=== PATIENT | female | born 1950 | race Two or more races ===

== ENCOUNTER 2022-01-18 15:36 | Inpatient (IN) | payer MEDICARE, MEDICAID ==
[~2022-01-18] VITALS: Ht 157.5 cm; Wt 58.7 kg
[2022-01-18 17:51] LABS: Basophils # (auto) 0 10 ^3/uL (0-0.2); Basophils % (auto) 0.2 % (0.0-2.0); Eosinophils # (auto) 0 10 ^3/uL (0-0.8); Eosinophils % (auto) 0.1 % (0.0-7.0); Hematocrit 39.7 % (36.0-46.0); Hemoglobin 13.6 g/dL (12.2-16.2); Lymphocytes # (auto) 0.6 10 ^3/uL (0.4-5.4); Lymphocytes % (auto) 3.8 % (10.0-50.0); Mean Corpuscular Hemoglobin 32.1 pg (28.0-32.0); Mean Corpuscular Hgb Conc. 34.3 g/dL (32.0-36.0); Mean Corpuscular Volume 93.6 fL (80.0-100.0); Monocytes # (auto) 1.3 10 ^3/uL (0-1.3); Monocytes % (auto) 8.8 % (0.0-12.0); Neutrophils # (auto) 13.1 10 ^3/uL (1.6-8.6); Neutrophils % (auto) 87.1 % (37.0-80.0); Red Blood Cells 4.24 10^6/uL (4.0-5.20); Red Cell Distribution Width 14.5 % (11.8-14.3)
[2022-01-18 18:08] LABS: Albumin 3.8 g/dL (3.4-5.0); Calcium 9.3 mg/dL (8.5-10.1); Potassium 4.5 mmol/L (3.5-5.1)
[2022-01-18 18:13] LABS: BUN/Creatinine Ratio 13.7; Bilirubin, Total 1.8 mg/dL (0.2-1.0); Total Protein 6.8 g/dL (6.4-8.2)
[2022-01-18] MEDS ORDERED: SODIUM CHLORIDE 0.9% 1,000 ML IV ONE (19:30)
[2022-01-18] MEDS ORDERED: ONDANSETRON HCL 4 MG/2 ML VIAL IV PRN (22:00)
[2022-01-18] MEDS ORDERED: cefTRIAXone 1GM/50ML D5W 50 ML IV ONE (22:00)
[2022-01-18] MEDS ORDERED: DOCUSATE SOD 100 MG CAP PO PRN (22:00)
[2022-01-18] MEDS ORDERED: SODIUM CHLORIDE 0.9% 1,000 ML IV SCH (22:00)
[2022-01-18] MEDS ORDERED: ACETAMINOPHEN 325 MG TAB PO PRN (22:00)
[2022-01-18] MEDS ORDERED: HYDROcodone-ACET 5/325MG TAB PO PRN (22:00)
[2022-01-18] MEDS ORDERED: MORPHINE SULFATE INJ 2 MG/ml SYRG IV PRN (23:30)
[2022-01-18] MEDS ORDERED: NITROGLYCERIN 0.4 MG SL TAB SL PRN (23:30)
[2022-01-19] VITALS (46 sets, daily range): BP systolic 88–119; BP diastolic 41–65
[2022-01-19] MEDS: FAMOTIDINE (10MG/ML) 2ML VL IV SCH ×3 (00:19→21:41)
[2022-01-19 03:29] LABS: Basophils # (auto) 0 10 ^3/uL (0-0.2); Eosinophils # (auto) 0 10 ^3/uL (0-0.8); Eosinophils % (auto) 0.1 % (0.0-7.0); Hematocrit 38.1 % (36.0-46.0); Hemoglobin 13.2 g/dL (12.2-16.2); Lymphocytes # (auto) 0.3 10 ^3/uL (0.4-5.4); Lymphocytes % (auto) 4.2 % (10.0-50.0); Mean Corpuscular Hemoglobin 32.7 pg (28.0-32.0); Mean Corpuscular Hgb Conc. 34.6 g/dL (32.0-36.0); Mean Corpuscular Volume 94.5 fL (80.0-100.0); Monocytes # (auto) 0 10 ^3/uL (0-1.3); Monocytes % (auto) 0.4 % (0.0-12.0); Neutrophils # (auto) 7.1 10 ^3/uL (1.6-8.6); Neutrophils % (auto) 95.3 % (37.0-80.0); Red Blood Cells 4.04 10^6/uL (4.0-5.20); Red Cell Distribution Width 14.9 % (11.8-14.3); White Blood Cell 7.5 10^3/uL (4.4-10.8)
[2022-01-19 03:55] LABS: Albumin 3.2 g/dL (3.4-5.0); BUN/Creatinine Ratio 12.2; Calcium 8.8 mg/dL (8.5-10.1)
[2022-01-19 03:58] LABS: Bilirubin, Total 1.7 mg/dL (0.2-1.0); Total Protein 6.8 g/dL (6.4-8.2)
[2022-01-19] MEDS ORDERED: SODIUM CHLORIDE 0.9% 2,000 ML IV ONE (10:30)
[2022-01-19] MEDS ORDERED: VANCOMYCIN 1GM/250ML 250 ML IV ONE (11:00)
[2022-01-19] MEDS ORDERED: VANCOMYCIN PER PHARMACY 0 MG IV SCH (11:00)
[2022-01-19] MEDS ORDERED: NOREPINEPHRINE 8 MG/250ML KIT 250 ML IV ONE (11:02)
[2022-01-19] MEDS: NOREPINEPHRINE 8 MG/250ML KIT 250 ML IV SCH (11:05)
[2022-01-19] MEDS: SODIUM CHLORIDE 0.9% 1,000 ML IV SCH ×2 (12:05→20:34)
[2022-01-19 12:18] LABS: Cholesterol 102 mg/dL (< 200); Triglycerides 65 mg/dL (< 150)
[2022-01-19 12:21] LABS: HDL Cholesterol 63 mg/dL (40-59); LDL Cholesterol 32 mg/dL (< 100)
[2022-01-19] MEDS ORDERED: TENO300T9 PO (13:19)
[2022-01-19] MEDS ORDERED: ITRA100C2 PO (13:19)
[2022-01-19] MEDS ORDERED: LACT10PA2 PO (13:19)
[2022-01-19] MEDS ORDERED: PANT1INJ3 IV (13:19)
[2022-01-19] MEDS ORDERED: SPIR50TA5 PO (13:19)
[2022-01-19] MEDS ORDERED: FURO40TA4 PO (13:19)
[2022-01-19 14:34] LABS: Urine Amorphous Crystal FEW /hpf (None Seen); Urine Bacteria FEW /hpf (None Seen); Urine Blood 3+ /uL (Negative); Urine Specific Gravity 1.011 (1.001-1.035); Urine WBC 64 /hpf (0 - 5)
[2022-01-19 15:12] LABS: Lactic Acid w/Reflex 2.1 mmol/L (0.4-2.0)
[2022-01-19] MEDS: cefTRIAXone 1GM/50ML D5W 50 ML IV SCH (21:40)
[2022-01-19] MEDS: ITRACONAZOLE 100 MG CAP PO SCH (21:43)
[2022-01-20] VITALS (86 sets, daily range): BP systolic 86–127; BP diastolic 37–67
[2022-01-20] MEDS: SODIUM CHLORIDE 0.9% 1,000 ML IV SCH ×3 (04:00→11:53)
[2022-01-20 04:33] LABS: Albumin 2.3 g/dL (3.4-5.0); BUN/Creatinine Ratio 14.2; Phosphorus 2.1 mg/dL (2.5-4.90); Potassium 3.5 mmol/L (3.5-5.1)
[2022-01-20] MEDS ORDERED: SODIUM BICARBONATE 650 MG TAB PO ONE (09:00)
[2022-01-20] MEDS: ITRACONAZOLE 100 MG CAP PO SCH ×3 (09:23→21:49)
[2022-01-20] MEDS: LACTULOSE 20Gm/30ML SOLN PO SCH (09:30)
[2022-01-20] MEDS ORDERED: PANTOPRAZOLE 40 MG/10 ML VIAL INJ IV SCH ×2 (10:00)
[2022-01-20] MEDS ORDERED: FUROSEMIDE 20 MG TAB PO SCH (10:00)
[2022-01-20] MEDS ORDERED: SPIRONOLACTONE 25 MG TAB PO SCH (10:00)
[2022-01-20] MEDS ORDERED: TENOFOVIR DISOPROXIL FUMARATE 300 MG PO SCH (10:00)
[2022-01-20 10:01] LABS: Phosphorus 2.3 mg/dL (2.5-4.90)
[2022-01-20 10:02] LABS: Magnesium 2.1 mg/dL (1.6-2.6)
[2022-01-20] MEDS: SODIUM BICARBONATE 650 MG TAB PO SCH ×3 (11:53→21:49)
[2022-01-20] MEDS ORDERED: VANCOMYCIN 500 MG in D5W 5% 100 ML IV ONE (14:30)
[2022-01-20] MEDS: NOREPINEPHRINE 8 MG/250ML KIT 250 ML IV SCH (14:36)
[2022-01-20] MEDS: NEUTRA-PHOS TABLET PO SCH ×2 (14:37→17:59)
[2022-01-20] MEDS ORDERED: SENN1TAB14 PO (15:38)
[2022-01-20] MEDS ORDERED: POTA99CA2 PO (15:38)
[2022-01-20] MEDS: ALBUMIN 25% 100 ML IV SCH ×2 (15:42→22:44)
[2022-01-20 17:05] LABS: Hepatitis A Ab IgM Negative; Hepatitis B Core IgM Negative; Hepatitis C Antibody Negative (Negative)
[2022-01-20] MEDS: cefTRIAXone 1GM/50ML D5W 50 ML IV SCH (21:48)
[2022-01-21] VITALS (88 sets, daily range): BP systolic 85–131; BP diastolic 39–69
[2022-01-21 04:23] LABS: Basophils # (auto) 0 10 ^3/uL (0-0.2); Basophils % (auto) 0.2 % (0.0-2.0); Eosinophils # (auto) 0.2 10 ^3/uL (0-0.8); Hemoglobin 11.3 g/dL (12.2-16.2); Lymphocytes # (auto) 0.6 10 ^3/uL (0.4-5.4); Monocytes # (auto) 0.8 10 ^3/uL (0-1.3); Red Cell Distribution Width 15.4 % (11.8-14.3)
[2022-01-21 04:25] LABS: Eosinophils % (auto) 1.5 % (0.0-7.0); Mean Corpuscular Hemoglobin 32.8 pg (28.0-32.0); Mean Corpuscular Hgb Conc. 35.3 g/dL (32.0-36.0); Mean Corpuscular Volume 92.9 fL (80.0-100.0); Monocytes % (auto) 7.6 % (0.0-12.0); Neutrophils # (auto) 8.6 10 ^3/uL (1.6-8.6); Neutrophils % (auto) 84.7 % (37.0-80.0); Nucleated Red Blood Cells % 0.1 %; Red Blood Cells 3.45 10^6/uL (4.0-5.20); White Blood Cell 10.2 10^3/uL (4.4-10.8)
[2022-01-21 05:00] LABS: BUN/Creatinine Ratio 13.3; Potassium 3.2 mmol/L (3.5-5.1)
[2022-01-21 05:01] LABS: Albumin 2.7 g/dL (3.4-5.0); Calcium 8.1 mg/dL (8.5-10.1)
[2022-01-21 05:06] LABS: Bilirubin, Total 0.6 mg/dL (0.2-1.0)
[2022-01-21] MEDS: ALBUMIN 25% 100 ML IV SCH ×3 (06:23→17:40)
[2022-01-21] MEDS: SODIUM BICARBONATE 650 MG TAB PO SCH ×4 (06:24→21:44)
[2022-01-21] MEDS: PANTOPRAZOLE 40 MG/10 ML VIAL INJ IV SCH (06:33)
[2022-01-21] MEDS: NEUTRA-PHOS TABLET PO SCH ×3 (08:27→17:41)
[2022-01-21] MEDS ORDERED: POTASSIUM EFFERVESENT TAB 25 MEQ PO ONE (09:00)
[2022-01-21] MEDS: ITRACONAZOLE 100 MG CAP PO SCH ×2 (09:16→21:44)
[2022-01-21] MEDS: LACTULOSE 20Gm/30ML SOLN PO SCH (09:20)
[2022-01-21] MEDS ORDERED: TENOFOVIR DISOPROXIL FUMARATE 300 MG PO SCH (10:00)
[2022-01-21] MEDS: NOREPINEPHRINE 8 MG/250ML KIT 250 ML IV SCH (11:00)
[2022-01-21] MEDS: cefTRIAXone 1GM/50ML D5W 50 ML IV SCH (21:44)
[2022-01-22] VITALS (45 sets, daily range): BP systolic 83–123; BP diastolic 43–75
[2022-01-22] MEDS: ALBUMIN 25% 100 ML IV SCH (00:53)
[2022-01-22 05:02] LABS: BUN/Creatinine Ratio 12.4; Calcium 8.2 mg/dL (8.5-10.1); Potassium 3.5 mmol/L (3.5-5.1)
[2022-01-22] MEDS: PANTOPRAZOLE 40 MG/10 ML VIAL INJ IV SCH (06:30)
[2022-01-22] MEDS: SODIUM BICARBONATE 650 MG TAB PO SCH ×4 (06:30→22:29)
[2022-01-22] MEDS: NEUTRA-PHOS TABLET PO SCH ×3 (09:22→18:12)
[2022-01-22] MEDS: LACTULOSE 20Gm/30ML SOLN PO SCH (09:23)
[2022-01-22] MEDS: ITRACONAZOLE 100 MG CAP PO SCH ×2 (09:25→22:30)
[2022-01-22] MEDS: NOREPINEPHRINE 8 MG/250ML KIT 250 ML IV SCH (11:00)
[2022-01-22] MEDS ORDERED: SODIUM CHLORIDE 0.9% 1,500 ML IV ONE (15:45)
[2022-01-22] MEDS: cefTRIAXone 1GM/50ML D5W 50 ML IV SCH (22:29)
[2022-01-23] VITALS (13 sets, daily range): BP systolic 99–123; BP diastolic 49–74
[2022-01-23 06:51] LABS: Calcium 8.2 mg/dL (8.5-10.1); Phosphorus 2.8 mg/dL (2.5-4.90); Potassium 3.5 mmol/L (3.5-5.1)
[2022-01-23] MEDS: SODIUM BICARBONATE 650 MG TAB PO SCH (06:55)
[2022-01-23] MEDS: PANTOPRAZOLE 40 MG/10 ML VIAL INJ IV SCH (06:56)
[2022-01-23] MEDS ORDERED: PANT40T PO (08:11)
[2022-01-23] MEDS ORDERED: NEUTRA PO (08:11)
[2022-01-23] MEDS ORDERED: CIPR-173 PO (08:11)
[2022-01-23] MEDS: NEUTRA-PHOS TABLET PO SCH (09:55)
[2022-01-23] MEDS: ITRACONAZOLE 100 MG CAP PO SCH (09:55)
[2022-01-23] MEDS: LACTULOSE 20Gm/30ML SOLN PO SCH (09:55)
== END 2022-01-23 14:57 | disposition home or self-care (01) | DRG 871 ==
LOC: EDBD 15:36 → ER 15:40 → TELE 23:30 → ICU WEST 01-19 12:32
PROVIDERS: ADMIT Nurse Practitioner Family; ATTEND Family Medicine
DX: A41.9 Sepsis, unspecified organism (principal); R65.21 Severe sepsis with septic shock; E87.1 Hypo-osmolality and hyponatremia; N17.9 Acute kidney failure, unspecified; I13.0 Hypertensive heart and chronic kidney disease with heart failure and stage 1 through stage 4 chronic kidney disease, or unspecified chronic kidney disease; I50.30 Unspecified diastolic (congestive) heart failure; N39.0 Urinary tract infection, site not specified; B18.1 Chronic viral hepatitis B without delta-agent; K74.60 Unspecified cirrhosis of liver; N18.9 Chronic kidney disease, unspecified; Z20.822 Contact with and (suspected) exposure to COVID-19; K80.20 Calculus of gallbladder without cholecystitis without obstruction; D69.6 Thrombocytopenia, unspecified; E87.6 Hypokalemia; E86.0 Dehydration; E88.09 Other disorders of plasma-protein metabolism, not elsewhere classified
CPT/HCPCS: 36415; 71045; 71250; 74176; 76700; 80048; 80053; 80061; 80069; 80074; 80202; 81001; 82140; 82962; 83036; 83605; 83735; 83880; 84100; 84443; 84484; 85025; 87040; 87081; 87086; 93005; 93306; 96361; 96365; C9113; G0378; J0696; J3490; J7060; P9047